=== PATIENT | female | born 1970 | race African-American/Black ===

== ENCOUNTER 2020-06-25 00:12 | Emergency (ER) | payer MEDICAID ==
[~2020-06-25] VITALS: Ht 170.2 cm; Wt 72.6 kg
[2020-06-25 00:20] VITALS: BP_SYST 117
[2020-06-25] MEDS ORDERED: NACL 0.9% 1,000 ML IV ONE (00:45)
[2020-06-25] MEDS ORDERED: NALOXONE HCL 2 MG/2 ML SYR ONE ×2 (00:46→01:18)
[2020-06-25 01:13] LABS: BILIRUBIN,URINE NEGATIVE (NEGATIVE); BLOOD, URINE NEGATIVE (NEGATIVE); CLARITY/URINE CLEAR (CLEAR); COLOR,URINE YELLOW (YELLOW); GLUCOSE,URINE NEGATIVE (NEGATIVE); KETONES,URINE NEGATIVE (NEGATIVE); LEUKOCYTE ESTERASE ,URINE TRACE (NEGATIVE); NITRITE, URINE NEGATIVE (NEGATIVE); PH,URINE 6.5 (5.0-8.0); PROTEIN URINE NEGATIVE (NEGATIVE)
[2020-06-25] MEDS ORDERED: NALOXONE HCL 2 MG/2 ML SYR IVP ONE (01:15)
[2020-06-25 01:20] LABS: BASOPHILS # (AUTO) 0.1 K/uL (0.0-0.2); BASOPHILS % (AUTO) 1.1 % (0.0-2.0); EOSINOPHILS # (AUTO) 0.3 K/uL (0.0-0.4); EOSINOPHILS % (AUTO) 5.9 % (0.0-4.0); HEMATOCRIT 35.9 % (36-48); HEMOGLOBIN 11.9 g/dL (12.0-16.0); LYMPHOCYTES # (AUTO) 1.4 K/uL (1.0-5.5); LYMPHOCYTES % (AUTO) 30.4 % (20.5-51.5); MEAN CORPUSCULAR HEMOGLOBIN 29 pg (27-31); MEAN CORPUSCULAR HGB CONC 33 % (32-36); MEAN CORPUSCULAR VOLUME 87 fL (79.0-98.0); MONOCYTES # (AUTO) 0.3 K/uL (0.0-1.0); MONOCYTES % (AUTO) 7.3 % (1.7-9.3); NEUTROPHILS # (AUTO) 2.6 K/uL (1.8-7.7); NEUTROPHILS % (AUTO) 55.3 % (40.0-70.0); PLATELET COUNT (AUTO) 204 K/uL (130-430); RED BLOOD CELL COUNT(AUTO) 4.13 MIL/uL (4.2-6.2); RED CELL DISTRIBUTION WIDTH 13.5 % (9.0-15.0); WHITE BLOOD COUNT (AUTO) 4.8 K/uL (4.8-10.8)
[2020-06-25 01:23] LABS: ANION GAP 7 (5-15); CALCIUM 8.1 mg/dL (8.4-11.0); CHLORIDE 106 mmol/L (98-107); CREATININE 0.63 mg/dL (0.55-1.30); GLUCOSE 107 mg/dL (70-99); POTASSIUM 3.9 mmol/L (3.5-5.1); SODIUM SERUM 140 mmol/L (136-145); UREA NITROGEN, BLOOD 11 mg/dL (8-21)
[2020-06-25 01:24] LABS: BARBITURATE, URINE NEGATIVE (NEG <=200); BENZODIAZEPINE, URINE POSITIVE (NEG <=150); CANNABINOID, URINE NEGATIVE (NEG <=50); COCAINE, URINE NEGATIVE (NEG <=150); METHAMPHETAMINES SCREEN,URINE POSITIVE (NEG <=500); OPIATE, URINE NEGATIVE (NEG <=100); PHENCYCLIDINE SCREEN,URINE NEGATIVE (NEG <=25); UR TRICYCLIC ANTIDEPRESSANTS NEGATIVE (NEG <=300); URINE AMPHETAMINE POSITIVE (NEG <=500); URINE METHADONE NEGATIVE (NEG <=200); URINE OXYCODONE SCREEN NEGATIVE (NEG <=100); URINE PROPOXYPHENE SCREEN NEGATIVE (NEG <=300)
[2020-06-25 01:31] LABS: GFR AFRICAN AMERICAN 135 mL/min (>90)
[2020-06-25 01:42] LABS: ALANINE AMINOTRANSFERASE 22 U/L (12-78); ALBUMIN 2.9 g/dL (3.4-4.8); ASPARTATE AMINOTRANSFERASE 19 U/L (10-37); THYROID STIMULATING HORMONE 1.37 uIu/mL (0.36-3.74)
[2020-06-25 01:45] LABS: ALCOHOL, BLOOD < 3 mg/dL (<10); HCG,QUANTITATIVE 1 mIU/ML (0-6)
[2020-06-25 02:07] LABS: CKMB RELATIVE INDEX 0.6 (0.0-2.9); CREATINE KINASE MB 1.7 ng/mL (0-3.6)
[2020-06-25 02:08] LABS: TOTAL BILIRUBIN 0.1 mg/dL (0.0-1.0)
[2020-06-25 02:11] LABS: BACTERIA,URINE FEW /HPF (None Seen)
[2020-06-25 07:25] VITALS: BP_SYST 109
== END 2020-06-25 07:25 | disposition home or self-care (01) ==
LOC: SED 00:12 → EDBD 00:12 → SED 07:25
DX: F19.129 Other psychoactive substance abuse with intoxication, unspecified (principal)
CPT/HCPCS: 36415; 80053; 80307; 81000; 82140; 82550; 82553; 82962; 84443; 84484; 84702; 85025; 87086; 93005; 96361; 96374; 99284; G0482; J2310; J7030